=== PATIENT | female | born 1935 | race American Indian/Alaskan Native ===

== ENCOUNTER 2016-08-15 10:55 | Outpatient (CLI) | payer MEDICARE, MEDICAID ==
--- NOTE | 2016-08-15 12:48 | Mammography Report ---
BONE DEXA:08/15/16 10:55:00 CLINICAL: Postmenopausal. COMPARISON: 09/27/08 TECHNIQUE: Two site bone DEXA performed on an Hologic scanner. FINDINGS: The average BMD of the lumbar spine L1-L4 is 1.202g/cm squared with a T-score of +1.4 and a Z-score of left 4.1. This compares to 1.150g/cm squared on the last exam and represents a +4.6% change from the previous baseline. The average BMD of the left hip is 0.872g/cm squared with a T-score of -0.6 and a Z-score of +1.4. This compares to 0.980g/cm squared on the last exam and represents a -11.0% change from the previous baseline. IMPRESSION: 1. WHO classification: Normal with average fracture risk based on both spine and left hip measurements. 2. A modest improvement in spine BMD compared to the prior exam. 3. Although the hip measurement is within the normal range, there is a significant decline in left hip BMD compared to the previous exam. RECOMMENDATION: Clinical correlation and routine screening. DEFINITIONS: BMD = Bone Mineral Density T-score = BMD related to mean peak bone mass of young adult (mean expressed in Standard Deviation) Z-score = Age matched BMD expressed in SD World Health Organization (WHO) Diagnostic Criteria Normal T-score > -1 SD Osteopenia T-score between -1 and -2.4 SD Osteoporosis T-score -2.5 SD or below NOTE: BMD is not the only risk factor for fracture; also consider factors such as the patient's age, risk of falling, previous osteoporotic fracture, family history of osteoporotic fractures, current smoker, and low body weight. Z-scores are not calculated if >80 years of age.
== END 2016-08-15 10:56 | disposition home or self-care (01) ==
LOC: SPVWC 10:55
PROVIDERS: ATTEND Internal Medicine Hematology & Oncology
DX: C50.912 Malignant neoplasm of unspecified site of left female breast (principal); Z78.0 Asymptomatic menopausal state; M85.89 Other specified disorders of bone density and structure, multiple sites
CPT/HCPCS: 77080